=== PATIENT | male | born 1980 | race African-American/Black ===

== ENCOUNTER 2017-05-03 02:06 | Emergency (ER) | payer OTHER ==
[~2017-05-03] VITALS: Ht 188 cm; Wt 136.1 kg
--- NOTE | ~2017-05-03 | EKG ---
[facility] [place] [address] ELECTROCARDIOGRAM REPORT Name: BINTA JIMÉNEZ Room #: DEP JOIE Panchal#: [id number] Admission: 05/03/17 Attend Phys: Discharge: 05/03/17 Date of : 80 Report #: [id number] THIS REPORT FOR: //name// [facility] ED Test Date: 2017-05-03 Test Time: 02:14:36 Pat Name: BINTA JIMÉNEZ Department: Room: Gender: M Ems Director: RAYRAY : 1980 Requested By: Tavo Nuñez Order Number: [id number] MD: Tin New Measurements Intervals [place] Rate: 99 P: 39 MN: 150 QRS: 47 QRSD: 74 T: 9 QT: 333 QTc: 428 Interpretive Statements Sinus rhythm Probable left atrial enlargement Borderline T abnormalities Baseline wander in lead(s) V1 No previous ECG available for comparison Electronically Signed On 05-03-2017 9:28:54 CDT by Tin New [email or web address] <ELECTRONICALLY SIGNED> By: Tin New MD, [facility] 05/03/17 0928 0214 0214 Tin New MD, FACC /EPI
[2017-05-03 02:42] LABS: BASOPHILS 0.8 % (0.0-2.0); EOSINOPHILS 2.8 % (0.0-3.0); HEMATOCRIT 44.4 % (42.0-52.0); HEMOGLOBIN 15.5 gm/dL (14.0-18.0); LYMPHOCYTES 37.4 % (24.0-44.0); MCH 30.7 pg (26.0-34.0); MCHC 34.9 g/dL (28.0-37.0); MCV 87.9 fL (80.0-100.0); MONOCYTES 8.9 % (1.0-8.0); PLATELET COUNT 223 thou/uL (150-400); POLYS 50.1 % (36.0-66.0); RBC 5.05 mil/uL (4.50-6.00); RDW 13.4 % (10.5-14.5)
[2017-05-03 02:45] LABS: MANUAL DIFF NO
[2017-05-03 02:47] LABS: ANION GAP 10 mmol/L (7-16); BUN 13 mg/dL (7-18); CALCIUM 8.7 mg/dL (8.5-10.1); CHLORIDE 100 mmol/L (98-107); CO2 27 mmol/L (21-32); CREATININE 1.3 mg/dL (0.7-1.3); GLUCOSE 117 mg/dL (74-106); POTASSIUM 3.2 mmol/L (3.5-5.1); SODIUM 137 mmol/L (136-145)
[2017-05-03 02:58] LABS: PROTIME 9.8 Seconds (9.3-11.4)
[2017-05-03 03:06] LABS: ALBUMIN 3.9 g/dL (3.4-5.0); ALKALINE PHOSPHATASE 67 U/L (46-116); CK-MB MASS 3.1 ng/mL (<0.5-3.6); MAGNESIUM 1.8 mg/dL (1.8-2.4); NT-PRO BRAIN NAT PEPTIDE 24 pg/mL (<300); SGOT 42 U/L (15-37); SGPT 47 U/L (30-65); TOTAL BILIRUBIN 0.4 mg/dL (<0.1-1.0); TOTAL PROTEIN 7.2 g/dL (6.4-8.2); TROPONIN-I < 0.04 ng/mL (<0.04-0.07)
[2017-05-03] MEDS ORDERED: ROBAXIN500 MG PO (03:22)
[2017-05-03] MEDS ORDERED: TRAMADOL 50 MG50 MG PO (03:22)
[2017-05-03] MEDS ORDERED: NAPROSYN500 MG PO (03:22)
[2017-05-03 03:58] VITALS: BP 155/99
== END 2017-05-03 04:08 | disposition home or self-care (01) ==
LOC: ER 02:06 → EDBD 02:06 → ER 04:08
PROVIDERS: Emergency Medicine
DX: R07.89 Other chest pain (principal); M43.6 Torticollis; J45.909 Unspecified asthma, uncomplicated; I10 Essential (primary) hypertension; Z98.890 Other specified postprocedural states

== ENCOUNTER 2017-05-07 07:27 | Emergency (ER) | payer OTHER ==
[~2017-05-07] VITALS: Ht 188 cm; Wt 136.1 kg
--- NOTE | ~2017-05-07 | EKG ---
[facility] [place] [place] [address] ELECTROCARDIOGRAM REPORT Name: BINTA JIMÉNEZ [facility] [id number] Admission: 05/07/17 Attend Phys: Discharge: Date of : 80 Report #: [id number] THIS REPORT FOR: //name// [facility] ED Test Date: 2017-05-07 Test Time: 07:53:12 Pat Name: BINTA JIMÉNEZ Department: Room: Gender: Regulatory Lead: DIVINE : 1980 Requested By: Tavo Nuñez Order Number: [id number] MD: Tin New Measurements Intervals [place] Rate: 72 P: 43 [place]: 153 QRS: 49 QRSD: 78 T: 0 QT: 380 QTc: 416 Interpretive Statements Sinus rhythm Borderline ST and T wave abnormality Minimal ST elevation, anterior leads Compared to ECG 05/03/2017 02:14:36 No significant change was found Electronically Signed On 05-07-2017 8:39:22 CDT by Tin New [email or web address] <ELECTRONICALLY SIGNED> By: Tin New MD, [facility] 05/07/17 0839 0753 0753 Tin New MD, FACC /EPI
[~2017-05-07 07:27] MED LIST: NAPROSYN500 MG PO; ROBAXIN500 MG PO; TRAMADOL 50 MG50 MG PO
[2017-05-07] MEDS ORDERED: LISINOPRIL-HCT1 EAC1 PO (07:34)
[2017-05-07 07:51] LABS: HEMATOCRIT 47.8 % (42.0-52.0); MCH 30.5 pg (26.0-34.0); MCHC 33.5 g/dL (28.0-37.0); MCV 90.9 fL (80.0-100.0); PLATELET COUNT 233 thou/uL (150-400); RBC 5.26 mil/uL (4.50-6.00); RDW 13.9 % (10.5-14.5); WBC 8.4 thou/uL (4.0-11.0)
[2017-05-07 08:00] LABS: MANUAL DIFF YES
[2017-05-07 08:01] LABS: ANION GAP 11 mmol/L (7-16); BUN 15 mg/dL (7-18); CALCIUM 8.8 mg/dL (8.5-10.1); CHLORIDE 105 mmol/L (98-107); CO2 27 mmol/L (21-32); CREATININE 1.3 mg/dL (0.7-1.3); GLUCOSE 128 mg/dL (74-106); POTASSIUM 3.7 mmol/L (3.5-5.1); SODIUM 143 mmol/L (136-145)
[2017-05-07 08:09] LABS: ALBUMIN 3.8 g/dL (3.4-5.0); ALKALINE PHOSPHATASE 64 U/L (46-116); MAGNESIUM 2.3 mg/dL (1.8-2.4); SALICYLATE 3.1 mg/dL (2.8-20.0); SGOT 34 U/L (15-37); SGPT 43 U/L (30-65); TOTAL BILIRUBIN 0.3 mg/dL (<0.1-1.0); TOTAL PROTEIN 7.2 g/dL (6.4-8.2); TROPONIN-I < 0.04 ng/mL (<0.04-0.07)
[2017-05-07 08:10] LABS: ACETAMINOPHEN < 2 ug/mL (10-30)
[2017-05-07 08:29] LABS: ABSOLUTE NEUTROPHILS 2.6 thou/uL (1.4-8.2); TOTAL CELL COUNT 100
[2017-05-07 08:30] LABS: ATYPICAL LYMPHS 4 %
[2017-05-07 08:31] LABS: ANISOCYTOSIS SLIGHT
[2017-05-07 11:31] VITALS: BP 144/59
[2017-05-07 11:34] LABS: URINE BILIRUBIN NEGATIVE (Negative); URINE BLOOD TRACE (Negative); URINE COLOR YELLOW; URINE GLUCOSE-RANDOM* NEGATIVE (Negative); URINE KETONES NEGATIVE (Negative); URINE LEUKOCYTES-REFLEX NEGATIVE (Negative); URINE PROTEIN (DIPSTICK) TRACE (Negative); URINE SPECIFIC GRAVITY 1.025 (1.003-1.035)
[2017-05-07 11:45] LABS: AMP/METHAMP Negative (Negative); BARBITURATES Negative (Negative); BENZODIAZEPINES Negative (Negative); COCAINE POSITIVE (Negative); METHADONE Negative (Negative); OPIATES POSITIVE (Negative); PCP POSITIVE (Negative); THC Negative (Negative)
== END 2017-05-07 11:32 | disposition home or self-care (01) ==
LOC: ER 07:27
PROVIDERS: Emergency Medicine
DX: F16.10 Hallucinogen abuse, uncomplicated (principal); F14.10 Cocaine abuse, uncomplicated; R20.2 Paresthesia of skin; J45.909 Unspecified asthma, uncomplicated; I10 Essential (primary) hypertension

== ENCOUNTER 2018-09-08 15:14 | Emergency (ER) | payer OTHER ==
[~2018-09-08] VITALS: Ht 188 cm; Wt 136.1 kg
--- NOTE | ~2018-09-08 | EKG ---
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 G: Skyler : 1980 Requested By: Patricia Barlow Order Number: [id number] MD: Anthony Boswell Measurements Intervals [place] Rate: 89 P: 46 [place]: 152 QRS: 44 QRSD: 73 T: -4 QT: 336 QTc: 409 Interpretive Statements Sinus rhythm Probable left atrial enlargement Minimal ST elevation, anterior leads, similar to prior Compared to ECG 05/07/2017 07:53:12 Electronically Signed On 09-09-2018 8:00:39 [employer] by Anthony Boswell [email or web address] <ELECTRONICALLY SIGNED> By: Anthony Boswell MD 09/09/18 0800 03 03 Anthony Boswell MD /JERRI
[~2018-09-08 15:14] MED LIST changes: +LISINOPRIL-HCT1 EAC1 PO
[2018-09-08 18:11] LABS: URINE BILIRUBIN NEGATIVE (Negative); URINE BLOOD 1+ (Negative); URINE CLARITY CLEAR; URINE COLOR YELLOW; URINE GLUCOSE-RANDOM* NEGATIVE (Negative); URINE KETONES NEGATIVE (Negative); URINE LEUKOCYTES-REFLEX NEGATIVE (Negative); URINE NITRITE-REFLEX NEGATIVE (Negative); URINE PROTEIN (DIPSTICK) NEGATIVE (Negative); URINE SPECIFIC GRAVITY 1.025 (1.005-1.035); URINE UROBILINOGEN 0.2 E.U./dl (0.2-1.0)
[2018-09-08 18:19] LABS: AMP/METHAMP Negative (Negative); BARBITURATES Negative (Negative); BENZODIAZEPINES Negative (Negative); COCAINE POSITIVE (Negative); METHADONE Negative (Negative); OPIATES Negative (Negative); PCP POSITIVE (Negative)
[2018-09-08 18:26] LABS: BACTERIA-REFLEX 1-9 Few /HPF (None Seen); CASTS None Seen /LPF (None Seen); CRYSTALS None Seen /LPF (None Seen); SQUAMOUS None Seen /LPF (0-3); URINE RBC 3-10 Few /HPF (0-2); URINE WBC-REFLEX None Seen /HPF (0-5)
[2018-09-08 18:34] LABS: ABSOLUTE NEUTROPHILS 3.8 thou/uL (1.4-8.2); BASOPHILS 1.1 % (0.0-2.0); EOSINOPHILS 3.2 % (0.0-3.0); HEMATOCRIT 46.4 % (42.0-52.0); HEMOGLOBIN 15.8 gm/dL (14.0-18.0); LYMPHOCYTES 41.2 % (24.0-44.0); MCH 30.3 pg (26.0-34.0); MCHC 34.1 g/dL (28.0-37.0); MCV 88.8 fL (80.0-100.0); MONOCYTES 8.9 % (1.0-8.0); PLATELET COUNT 243 thou/uL (150-400); POLYS 45.6 % (36.0-66.0); RBC 5.22 mil/uL (4.50-6.00); RDW 14.5 % (10.5-14.5); WBC 8.3 thou/uL (4.0-11.0)
[2018-09-08 18:44] LABS: ANION GAP 6 mmol/L (7-16); BUN 10 mg/dL (7-18); CALCIUM 9.5 mg/dL (8.5-10.1); CHLORIDE 105 mmol/L (98-107); CO2 31 mmol/L (21-32); CREATININE 1.2 mg/dL (0.7-1.3); GLUCOSE 104 mg/dL (74-106); POTASSIUM 4.3 mmol/L (3.5-5.1); SODIUM 142 mmol/L (136-145)
[2018-09-08 18:54] LABS: TROPONIN-I <0.06 ng/mL (<0.06)
[2018-09-08] MEDS ORDERED: NOHOMEMEDICATIONS (19:25)
[2018-09-08 19:35] VITALS: BP 158/105
== END 2018-09-08 19:36 | disposition home or self-care (01) ==
LOC: ER 15:14
PROVIDERS: Emergency Medicine
DX: R53.83 Other fatigue (principal); R53.1 Weakness; F14.10 Cocaine abuse, uncomplicated; F16.10 Hallucinogen abuse, uncomplicated; R07.89 Other chest pain; R68.84 Jaw pain; F41.9 Anxiety disorder, unspecified; F17.200 Nicotine dependence, unspecified, uncomplicated; J45.909 Unspecified asthma, uncomplicated; I10 Essential (primary) hypertension

== ENCOUNTER 2020-06-11 00:58 | Emergency (ER) | payer OTHER ==
[~2020-06-11] VITALS: Ht 188 cm; Wt 136.1 kg
[~2020-06-11 00:58] MED LIST changes: +NOHOMEMEDICATIONS
[2020-06-11] MEDS ORDERED: ANTIHYPERTENSIVE (01:18)
[2020-06-11] MEDS ORDERED: PROAIR HFA8.5 GM INH (01:35)
[2020-06-11] MEDS ORDERED: VENTOLIN HFA 1818 GM INH (03:39)
[2020-06-11 03:54] VITALS: BP 120/84
--- NOTE | 2020-06-11 07:49 | EKG ---
[facility] [place] [address] ELECTROCARDIOGRAM REPORT Name: BINTA JIMÉNEZ Room #: DEP [facility]#: [id number] Admission: 06/11/20 Attend Phys: Discharge: 06/11/20 Date of : 80 Report #: [id number] THIS REPORT FOR: cc: Katey Mullins MD, Karla L. 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
== END 2020-06-11 03:58 | disposition home or self-care (01) ==
LOC: ER 00:58
DX: J45.909 Unspecified asthma, uncomplicated (principal); I10 Essential (primary) hypertension; Z79.899 Other long term (current) drug therapy